=== PATIENT | male | born 1965 | race African-American/Black ===

== ENCOUNTER 2025-02-20 11:54 | Inpatient (IN) | payer OTHER ==
[2025-02-20] MEDS ORDERED: Methocarbamol 500 MG TAB ONE (12:39)
[2025-02-20 12:46] LABS: #Basophils 0.03 10x3/uL (0.0-0.2); #Eosinophils 0.05 10x3/uL (0.0-0.7); #Monocytes 0.75 10x3/uL (0.11-0.59); #Neutrophils 11.47 10x3/uL (1.40-6.50); %Basophils 0.2 % (0.0-1.0); %Eosinophils 0.4 % (0.0-10.0); %Lymphocytes 12.2 % (21.0-51.0); %Monocytes 5.3 % (0.0-10.0); %Neutrophils 81.6 % (42.0-75.0); Hematocrit 38.2 % (42.0-52.0); Hemoglobin 13.6 g/dL (14.0-18.0); Mean Corpuscular Hemoglobin 32.5 pg (27.0-31.0); Mean Corpuscular Volume 91.4 fL (78.0-98.0); Platelet Count 191 10x3/uL (130-400); Red Blood Cell (RBC) Count 4.18 mill/uL (4.70-6.10); White Blood Cell (WBC) Count 14.06 10x3/uL (4.8-10.8)
[2025-02-20 13:13] LABS: Lipase 316 U/L (8-78)
[2025-02-20 13:16] LABS: ALT (SGPT) Less than 7 U/L (Less than 45); AST (SGOT) 13 U/L (11-34); Albumin 3.7 g/dL (3.1-4.5); Alkaline Phosphatase 109 U/L (40-110); Anion Gap 16 mmol/L (10-20); BUN (Urea Nitrogen) 20 mg/dL (8.4-25.7); Bilirubin, Total 0.9 mg/dL (0.3-1.2); Calc. Creatinine Clearance 0 mL/min (70-130); Calcium 9.3 mg/dL (7.8-10.44); Carbon Dioxide 21 mmol/L (22-29); Chloride 101 mmol/L (98-107); Globulin 4.5 g/dL (2.4-3.5); Glucose 441 mg/dL (70-105); Potassium 4.2 mmol/L (3.5-5.1); Sodium 134 mmol/L (136-145)
[2025-02-20 13:35] LABS: Actual Bicarbonate (HCO3v) 22.0 mEq/L (22-28); Analyzer IN Cardio ER; Base Excess -1.6 mEq/L (-2.0 to +3.0); Calcium, Ionized (venous) 1.14 mmol/L (1.16-1.32); Chloride (VBG) 99 mmol/L (98-106); Hematocrit-VBG 44 % (42.0-52.0); Hemoglobin (Hb) 14.9 g/dL (13.1-17.2); Potassium (VBG) 4.41 mmol/L (3.70-5.30); Sodium 136 mmol/L (133-146)
[2025-02-20 13:42] LABS: Bacteria/HPF 1+ HPF (None Seen); CAUTI Indications for Culture Pelvic or flank pain; Glucose, Urine (Dipstick) Greater than 1000 mg/dL (Negative); Leukocyte 75 Leu/uL (Negative); Protein, Urine (Dipstick) 200 mg/dL (Neg-Trace); RBC/HPF 0-3 HPF (0-3); Specific Gravity, Urine 1.024 (1.002-1.036)
[2025-02-20 13:43] LABS: Urine Culture Reflex Yes Yes
[2025-02-20] MEDS ORDERED: Dextrose 50% Abboject 50 ML SYRINGE SLOW IVP PRN (16:20)
[2025-02-20] MEDS ORDERED: Acetaminophen 325 MG TAB PO PRN (16:20)
[2025-02-20] MEDS ORDERED: Glucagon 1 MG/ML KIT IM PRN (16:20)
[2025-02-20] MEDS ORDERED: Ondansetron PF 4 MG/2 ML Vial IVP PRN (16:20)
[2025-02-20] MEDS: cefTRIAXone\\ROCEPHIN 1 GM in Sodium Chloride 0.9% 100 ML IVPB SCH (17:10)
[2025-02-20] MEDS: hydrALAZINE 20 MG/ML VIAL SLOW IVP PRN (17:11)
[2025-02-20 17:35] VITALS: BMI 30.9
[2025-02-20 18:17] LABS: CRP,High Sensitivity (Inhouse) 9.55 mg/dL (< or = 0.5)
[2025-02-20 18:18] LABS: Cardiac Risk 4.0 (Less than 4.5); Cholesterol 223 mg/dl (< 200 Desired); HDL Cholesterol 56 mg/dL (>60 Neg Risk); LDL Cholesterol, Calculated 137 mg/dL; Magnesium 1.9 mg/dL (1.6-2.6); Triglycerides 150 mg/dL (Less than 150)
[2025-02-20] MEDS: Melatonin 3 MG TAB PO PRN (20:48)
[2025-02-20] MEDS: Insulin Glargine 30 UNITS/0.3 ML VIAL SC SCH (20:49)
[2025-02-21 06:02] LABS: #Basophils 0.03 10x3/uL (0.0-0.2); #Eosinophils 0.07 10x3/uL (0.0-0.7); #Monocytes 0.69 10x3/uL (0.11-0.59); #Neutrophils 8.81 10x3/uL (1.40-6.50); %Basophils 0.3 % (0.0-1.0); %Eosinophils 0.6 % (0.0-10.0); %Lymphocytes 16.8 % (21.0-51.0); %Monocytes 6.0 % (0.0-10.0); %Neutrophils 76.0 % (42.0-75.0); Hematocrit 34.6 % (42.0-52.0); Hemoglobin 12.3 g/dL (14.0-18.0); Mean Corpuscular Hemoglobin 32.9 pg (27.0-31.0); Mean Corpuscular Volume 92.5 fL (78.0-98.0); Platelet Count 150 10x3/uL (130-400); Red Blood Cell (RBC) Count 3.74 mill/uL (4.70-6.10); White Blood Cell (WBC) Count 11.57 10x3/uL (4.8-10.8)
[2025-02-21 06:20] LABS: ALT (SGPT) Less than 7 U/L (Less than 45); AST (SGOT) 15 U/L (11-34); Albumin 3.1 g/dL (3.1-4.5); Alkaline Phosphatase 82 U/L (40-110); Anion Gap 13 mmol/L (10-20); BUN (Urea Nitrogen) 18 mg/dL (8.4-25.7); Bilirubin, Total 0.7 mg/dL (0.3-1.2); Calc. Creatinine Clearance 52 mL/min (70-130); Calcium 8.7 mg/dL (7.8-10.44); Carbon Dioxide 21 mmol/L (22-29); Chloride 106 mmol/L (98-107); Globulin 3.9 g/dL (2.4-3.5); Glucose 243 mg/dL (70-105); Lipase 120 U/L (8-78); Potassium 3.7 mmol/L (3.5-5.1); Sodium 136 mmol/L (136-145)
[2025-02-21] MEDS: Enoxaparin 40 MG (0.4 mL) SYRINGE SC SCH (08:17)
[2025-02-21 18:49] LABS: Hep B Surf Ag NONREACTIVE S/CO (NonReactive); Hep C IgG Ab NONREACTIVE S/CO (NonReactive); Hep C Index 0.15 S/CO (0-0.79)
[2025-02-21] MEDS: NIFEdipine XL 30 MG ER.TAB PO SCH (20:45)
[2025-02-21 21:55] LABS: Protein, Urine Random Quant 100.0 mg/dL (1-14)
[2025-02-22 06:08] LABS: ALT (SGPT) Less than 7 U/L (Less than 45); AST (SGOT) 12 U/L (11-34); Albumin 2.7 g/dL (3.1-4.5); Alkaline Phosphatase 72 U/L (40-110); Anion Gap 11 mmol/L (10-20); BUN (Urea Nitrogen) 13 mg/dL (8.4-25.7); Bilirubin, Total 0.4 mg/dL (0.3-1.2); Calc. Creatinine Clearance 59 mL/min (70-130); Calcium 8.3 mg/dL (7.8-10.44); Carbon Dioxide 21 mmol/L (22-29); Chloride 108 mmol/L (98-107); Globulin 3.6 g/dL (2.4-3.5); Glucose 148 mg/dL (70-105); Potassium 3.6 mmol/L (3.5-5.1); Sodium 136 mmol/L (136-145)
[2025-02-22] MEDS: Senokot S 8.6-50 MG TAB PO PRN (12:13)
[2025-02-22 16:19] LABS: ANA Symphony (Qualitative) POSITIVE (Negative); ANA Symphony (Quantitative) 2.4 Ratio (< 0.7 Negative); CENP IgG Antibody Less than 0.4 EliAU/mL (<7 Negative); RNP70 IgG Antibody 1.3 EliAU/mL (<7 Negative); SSA/Ro IgG Antibody 14.0 EliAU/mL (<7 Negative); SSB/La IgG Antibody Less than 0.4 EliAU/mL (<7 Negative); Scleroderma-70 IgG Antibody Less than 0.6 EliAU/mL (<7 Negative); U1RNP IgG Antibody 1.4 EliAU/mL (<5 Negative); dsDNA IgG Antibody Less than 0.6 IU/mL (<10 Negative)
[2025-02-23 05:39] LABS: #Basophils 0.04 10x3/uL (0.0-0.2); #Eosinophils 0.14 10x3/uL (0.0-0.7); #Monocytes 0.75 10x3/uL (0.11-0.59); #Neutrophils 5.90 10x3/uL (1.40-6.50); %Basophils 0.4 % (0.0-1.0); %Eosinophils 1.5 % (0.0-10.0); %Lymphocytes 28.0 % (21.0-51.0); %Monocytes 7.9 % (0.0-10.0); %Neutrophils 61.8 % (42.0-75.0); Hematocrit 31.3 % (42.0-52.0); Hemoglobin 10.8 g/dL (14.0-18.0); Mean Corpuscular Hemoglobin 32.4 pg (27.0-31.0); Mean Corpuscular Volume 94.0 fL (78.0-98.0); Platelet Count 145 10x3/uL (130-400); Red Blood Cell (RBC) Count 3.33 mill/uL (4.70-6.10); White Blood Cell (WBC) Count 9.54 10x3/uL (4.8-10.8)
[2025-02-23 06:06] LABS: ALT (SGPT) Less than 7 U/L (Less than 45); AST (SGOT) 19 U/L (11-34); Albumin 2.7 g/dL (3.1-4.5); Alkaline Phosphatase 92 U/L (40-110); Anion Gap 11 mmol/L (10-20); BUN (Urea Nitrogen) 12 mg/dL (8.4-25.7); Bilirubin, Total 0.2 mg/dL (0.3-1.2); Calc. Creatinine Clearance 57 mL/min (70-130); Calcium 8.4 mg/dL (7.8-10.44); Carbon Dioxide 21 mmol/L (22-29); Chloride 110 mmol/L (98-107); Globulin 3.7 g/dL (2.4-3.5); Glucose 109 mg/dL (70-105); Potassium 3.7 mmol/L (3.5-5.1); Sodium 138 mmol/L (136-145)
[2025-02-23 07:22] LABS: Smith D IgG Antibody Less than 0.7 EliAU/mL (<7 Negative)
[2025-02-23] MEDS: Losartan 25 MG TAB PO SCH (10:57)
[2025-02-23 11:42] VITALS: BP 134/86; TEMP 98.4
[2025-02-24] MEDS ORDERED: Losartan 25 MG TAB PO SCH (09:00)
[2025-02-24 16:14] LABS: Albumin-Ur 58.7 % (.); Alpha 1 - Ur 6.8 % (.); Alpha 2 - Ur 11.1 % (.); Beta-Ur 12.2 % (.); Gamma-Ur 11.2 % (.); M-Spike,% Not Observed % (Not Observed); Protein, Urine 97.7 mg/dL (Not Estab.)
[2025-02-24 16:14] LABS: A/G Ratio 0.8 (0.7-1.7); Albumin 3.2 g/dL (2.9-4.4); Alpha 1 0.3 g/dL (0.0-0.4); Alpha 2 1.0 g/dL (0.4-1.0); Beta 1.4 g/dL (0.7-1.3); Gamma 1.2 g/dL (0.4-1.8); Globulin, Total 3.9 g/dL (2.2-3.9); M-Spike Not Observed g/dL (Not Observed)
[2025-02-24 18:38] LABS: Myeloperoxidase AutoAbs <0.2 units (0.0-0.9); Proteinase-3 AutoAbs Less than 0.2 units (0.0-0.9)
== END 2025-02-23 14:14 | disposition home or self-care (01) | DRG 682 ==
LOC: ERS 11:54 → ERHOLD 15:27 → T4-B 16:58
PROVIDERS: ADMIT Hospitalist; ATTEND Hospitalist
DX: N17.9 Acute kidney failure, unspecified (principal); K85.21 Alcohol induced acute pancreatitis with uninfected necrosis; N39.0 Urinary tract infection, site not specified; N18.4 Chronic kidney disease, stage 4 (severe); F17.290 Nicotine dependence, other tobacco product, uncomplicated; E11.22 Type 2 diabetes mellitus with diabetic chronic kidney disease; R63.4 Abnormal weight loss; I12.9 Hypertensive chronic kidney disease with stage 1 through stage 4 chronic kidney disease, or unspecified chronic kidney disease; Z79.899 Other long term (current) drug therapy
CPT/HCPCS: 36415; 36416; 74176; 76705; 80053; 80061; 81001; 82010; 82570; 82805; 83036; 83516; 83690; 83735; 84155; 84156; 84165; 84166; 85025; 86037; 86038; 86141; 86225; 86235; 86803; 87077; 87086; 87340; 93005; 96361; 96374; J0360; J0696; J1650; J1815; J2270; J7030

== ENCOUNTER 2025-04-22 12:40 | Emergency (ER) | payer OTHER, SELFPAY ==
[2025-04-22 13:14] LABS: #Basophils 0.04 10x3/uL (0.0-0.2); #Eosinophils 0.16 10x3/uL (0.0-0.7); #Monocytes 0.86 10x3/uL (0.11-0.59); #Neutrophils 10.75 10x3/uL (1.40-6.50); %Basophils 0.3 % (0.0-1.0); %Eosinophils 1.1 % (0.0-10.0); %Lymphocytes 16.2 % (21.0-51.0); %Monocytes 6.1 % (0.0-10.0); %Neutrophils 75.9 % (42.0-75.0); Hematocrit 29.9 % (42.0-52.0); Hemoglobin 10.1 g/dL (14.0-18.0); Mean Corpuscular Hemoglobin 31.1 pg (27.0-31.0); Mean Corpuscular Volume 92.0 fL (78.0-98.0); Platelet Count 215 10x3/uL (130-400); Red Blood Cell (RBC) Count 3.25 mill/uL (4.70-6.10); White Blood Cell (WBC) Count 14.16 10x3/uL (4.8-10.8)
[2025-04-22 13:53] LABS: ALT (SGPT) 9 U/L (Less than 45); AST (SGOT) 25 U/L (11-34); Albumin 3.8 g/dL (3.1-4.5); Alkaline Phosphatase 103 U/L (40-110); Anion Gap 15 mmol/L (10-20); BUN (Urea Nitrogen) 29 mg/dL (8.4-25.7); Bilirubin, Total 0.5 mg/dL (0.3-1.2); Calc. Creatinine Clearance 0 mL/min (70-130); Calcium 9.6 mg/dL (7.8-10.44); Carbon Dioxide 22 mmol/L (23-31); Chloride 106 mmol/L (98-107); Globulin 4.1 g/dL (2.4-3.5); Glucose 152 mg/dL (80-115); Potassium 4.1 mmol/L (3.5-5.1); Sodium 139 mmol/L (136-145)
== END 2025-04-22 17:05 | disposition home or self-care (01) ==
LOC: ERS 12:40
DX: N17.9 Acute kidney failure, unspecified (principal); N18.9 Chronic kidney disease, unspecified; E86.0 Dehydration; F17.220 Nicotine dependence, chewing tobacco, uncomplicated
CPT/HCPCS: 71045; 80053; 84484; 85025; 93005; 96360; 96361